=== PATIENT | male | born 1970 | race Caucasian/White ===

== ENCOUNTER 2017-08-03 21:27 | Emergency (ER) | payer OTHER ==
[~2017-08-03] VITALS: Ht 175.3 cm; Wt 77.2 kg
[~2017-08-03 21:27] MED LIST: PARO1TAB27 PO
[2017-08-03 21:30] VITALS: PULSE 82; TEMP 37; O2SAT 97; Ht 175.3 cm; Wt 77.2 kg
[2017-08-03] MEDS ORDERED: IBUP-1427 PO (21:55)
[2017-08-03 22:01] VITALS: BP 130/84
--- NOTE | 2017-08-03 22:01 | EMERGENCY ROOM VISIT NOTE ---
History First contact with patient: 21:34 Chief Complaint: BACK PAIN Stated Complaint: WORK COM PAIN IN LOWER BACK-BUTT AND R LEG IS NUMB History of Present Illness The patient is a 46 year old male who presents to the Emergency Room with complaints of low back pain that radiates down his right leg that started this morning while he was at work. Patient is a business banking officer. Patient states this is a work-related injury. Patient states around 7:30 this morning he got up and was walking around when he developed low back pain down his leg with numbness. He describes the pain as aching, ranging in severity 6 out of 10. Nothing makes it better or worse. Patient denies chest pain, dyspnea, fever, chills, weakness, loss of bowel or bladder control, saddle anesthesia, IV drug abuse. No injury to the area. He did not fall. He's had back pain before but this feels different. He has seen a chiropractor in the past. Review of Systems See HPI for pertinent positives & negatives. A total of 10 systems reviewed and were otherwise negative. Past Medical/Surgical History Medical Problems: (1) Depression Social History Smoking Status: Never Smoker Alcohol Use: occasionally Drug Use: none Marital Status: Housing Status: lives with family Occupation Status: employed Current/Historical Medications Scheduled Paroxetine (Paxil), 20 MG PO DAILY Scheduled PRN Ibuprofen Tab (Motrin), 600 MG PO Q6H PRN for Pain Physical Exam Vital Signs Date Time Temp Pulse Resp B/P (MAP) Pulse Ox O2 Delivery O2 Flow Rate FiO2 08/03/17 21:30 37.0 82 18 133/77 97 Room Air Physical Exam VITALS: Vitals are noted on the nurse's note and reviewed by myself. Vital signs stable. GENERAL: Pleasant male, in no acute distress, nondiaphoretic, well-developed well-nourished. SKIN: Capillary reflex less than 2 seconds. HEENT: Normocephalic. PERRLA. EOMI. Nares patent. Mucous membranes moist. Neck is supple without nuchal rigidity. HEART: Regular rate and rhythm without murmurs gallops or rubs. LUNGS: Clear to auscultation bilaterally without wheezes, rales or rhonchi. No retractions or accessory muscle use. ABDOMEN: Positive bowel sounds x 4. Normal tympanic percussion. Soft, nontender, without masses or organomegaly. Bustillo sign negative. No guarding or rebound tenderness. MUSCULOSKELETAL: No gross musculoskeletal defects. +2 patellar reflexes bilaterally. Patient can walk on toes and heels without difficulties. No thoracic or lumbar tenderness on exam. Positive straight leg raise on the right NEURO: Patient was alert and oriented to person place and time. Normal sensation to light and sharp touch. No focal neurological deficits. Medical Decision & Procedures ED Course Prior records/ancillary studies reviewed. Triage Nursing notes reviewed. The patient's history was concerning for back pain. Differential diagnosis: Etiologies such as musculoskeletal, disc herniation, fracture, aortic disease, metastatic disease, cord compression, discitis, infection, renal colic, gastrointestinal, acute exacerbation of chronic back pain, sciatica, cauda equina, as well as others were entertained. Physical findings: As above. No focal neurologic findings noted. ER treatment provided: Work-related paperwork for filled out and given back to the patient On reassessment the patient felt better. Diagnostics interpreted by me: Deferred This appears to be consistent with lumbar radiculopathy. Patient was neurovascularly and neurologically intact. He is able to ambulate without difficulties and walk on toes and heels. Reflexes are intact. No trauma. He was advised to follow-up with his work-related injury provider for further evaluation treatment for his sciatica or here in the ER sooner for severe pain, numbness, tingling, worsening signs or symptoms or as needed. Patient ambulated out of the ER without difficulties. The patient's physical examination and detailed history did not reveal any red flags for back pain such as those listed in the differential diagnosis. Therefore advanced diagnostics and consultations were felt to be unwarranted. By the evaluation outlined above emergent etiologies such as fracture, aortic disease, metastatic disease, infection, renal colic, gastrointestinal, cord compression, cauda equina, as well as others were deemed relatively unlikely. The pt informed about the findings as listed above. All questions were answered and pleased with the treatment. Return instructions were outlined and the patient was discharged in stable condition. Outpatient prescription management: Motrin Referral: The patient was referred back to work-related injury provider for follow-up in 2 to 3 days for a recheck of the current condition. Medical Decision As above Medication Reconcilliation Current Medication List: was personally reviewed by me Blood Pressure Screening Patient's blood pressure: Normal blood pressure Impression Primary Impression: Lumbar radiculopathy Additional Impression: work related injury Departure Information Dispostion Home / Self-Care Condition GOOD Prescriptions Ibuprofen Tab (MOTRIN) 600 Mg Tab 600 MG PO Q6H Y for Pain, #20 TAB Prov: Roxana Rebolledo MARLON You 08/03/17 Forms HOME CARE DOCUMENTATION FORM, Work Instructions, Return To Work: 3 days IMPORTANT VISIT INFORMATION Patient Instructions Lumbar Radiculopathy, My [facility] [address] Additional Instructions Ibuprofen(Motrin, Advil) may be used for fever or pain. Use 600mg every six hours as needed. Take with food. Avoid using more than 2400mg in a 24 hour period. Do not use 2400mg per day for more than three consecutive days without physician direction. Prolonged inappropriate use can lead to stomach upset or ulcers. This medication can be taken if you need to drive, work, or perform activities which may be dangerous when taking narcotic pain medication. (AND/OR) Acetaminophen(Tylenol) may be used for fever or pain. Use 1000mg every six hours as needed. Avoid using more than 3000mg in a 24 hour period. This medication can be taken if you need to drive, work, or perform activities which may be dangerous when taking narcotic pain medication. Rest and avoid heavy lifting until your symptoms resolve and then gradually return to full activity. A good rule of thumb is if it hurts your back to perform a certain activity, then it should be avoided until you are healthy again. A heating pad, warm compresses, or a hot shower may help with tight muscles and can be done several times a day as needed. Continue current medications. Return to the ER immediately for any numbness, tingling, severe pain, loss of control of your bowels or bladder, inability to walk, or as needed. Follow up with your work related injury provider in 2-3 days for a recheck of your current condition. Work Instructions Return To Work: 3 days Problem Qualifiers
== END 2017-08-03 22:00 | disposition home or self-care (01) ==
LOC: C.EDB 21:29
DX: M54.16 Radiculopathy, lumbar region (principal); S39.92XA Unspecified injury of lower back, initial encounter; X58.XXXA Exposure to other specified factors, initial encounter; Y99.0 Civilian activity done for income or pay; Y92.149 Unspecified place in prison as the place of occurrence of the external cause